=== PATIENT | male | born 1985 | race Caucasian/White ===

== ENCOUNTER 2017-03-14 00:22 | Emergency (ER) | payer OTHER ==
[2017-03-14 01:09] LABS: BILIRUBIN NEGATIVE (NEGATIVE); BLOOD NEGATIVE Ery/uL (NEGATIVE); CLARITY CLEAR (CLEAR); COLOR YELLOW (YELLOW); GLUCOSE (U) NORMAL (NORMAL); KETONE (U) NEGATIVE (NEGATIVE); LEUKOCYTES NEGATIVE Leu/uL (NEGATIVE); NITRITE NEGATIVE (NEGATIVE); PROTEIN NEGATIVE (NEGATIVE); UROBILINOGEN 0.2 mg/dL (0.2-1.0)
[2017-03-14 01:11] LABS: BASOPHIL 0.7 % (0-2); HCT 42.4 % (42.0-52.0); HGB 14.2 g/dl (13.2-18.0); LYMPHOCYTE 11.6 % (15-48); MCH 31.3 pg (25.0-31.0); MCHC 33.5 g/dL (32.0-36.0); MCV 93.4 fL (78.0-100.0); MONOCYTE 8.7 % (0-12); MPV 9.3 fL (6.0-9.5); PLT 265 K/uL (150-400); RBC 4.54 M/uL (4.70-6.00); RDW 13.4 % (11.5-14.0); WBC 8.9 K/uL (4.0-10.5)
[2017-03-14 01:17] LABS: AMPHETAMINES NEGATIVE (NEGATIVE); BENZODIAZEPINES NEGATIVE (NEGATIVE); COCAINE NEGATIVE (NEGATIVE); MARIJUANA (THC) NEGATIVE (NEGATIVE)
[2017-03-14 01:18] LABS: BARBITURATES NEGATIVE (NEGATIVE); METHADONE NEGATIVE (NEGATIVE); TRICYCLIC ANTIDEPRESSANT NEGATIVE (NEGATIVE)
[2017-03-14 01:29] LABS: ACETAMINOPHEN (TYLENOL) < 5.0 ug/mL (10.0-30.0); ALBUMIN 4.5 g/dL (3.5-5.0); ALCOHOL (ETOH) MEDICAL NONE DETECTED; BILIRUBIN - TOTAL 0.4 mg/dL (0.1-1.0); GLOBULIN (CALCULATION) 2.3 g/dL (2.2-4.2); POTASSIUM 4.1 mmol/L (3.5-5.1); SALICYLATE < 6 ug/mL (0-300); TOTAL PROTEIN 6.8 g/dL (6.4-8.3)
== END 2017-03-14 05:01 | disposition home or self-care (01) ==
LOC: FER 00:22
PROVIDERS: Emergency Medicine Emergency Medical Services
DX: F19.10 Other psychoactive substance abuse, uncomplicated (principal); E86.9 Volume depletion, unspecified
CPT/HCPCS: 36415; 70450; 71010; 80053; 80305; 81003; 83605; 84484; 85025; 93005; G0480

== ENCOUNTER 2021-06-29 11:06 | Emergency (ER) | payer OTHER | END 2021-06-29 11:47 | disposition left against medical advice (07) | LOC: FER 11:06 | DX: Z53.8 Procedure and treatment not carried out for other reasons (principal) ==